=== PATIENT | female | born 1960 | race Caucasian/White ===

== ENCOUNTER 2016-05-26 18:48 | Emergency (ER) | payer MEDICAID ==
[2016-05-26] MEDS ORDERED: KETOROLAC 30 MG/ML VIAL ONE (23:42)
[2016-05-26] MEDS ORDERED: DIPHENHYDRAMINE 50 MG/ML VIAL ONE (23:42)
[2016-05-26] MEDS ORDERED: METOCLOPRAMIDE 10 MG/2 ML VIAL ONE (23:42)
[2016-05-26] MEDS ORDERED: SODIUM CHLORIDE 0.9% 1,000 ML ONE (23:42)
[2016-05-27] MEDS ORDERED: METOCLOPRAMIDE 10 MG/2 ML VIAL ONE (00:44)
== END 2016-05-27 01:36 | disposition home or self-care (01) ==
LOC: ER 18:48
DX: R51 Headache (principal); Z79.899 Other long term (current) drug therapy
CPT/HCPCS: 96361; 96374; 96375; 96376